=== PATIENT | female | born 1975 | race Hispanic/Latino ===

== ENCOUNTER 2017-09-10 05:40 | Observation (INO) | payer OTHER ==
[2017-09-10 05:55] VITALS: BMI 37.3
--- NOTE | 2017-09-10 06:09 | ED PDOC ---
HPI: Chest Pain Time Seen by Provider: 09/10/17 06:00 Chief Complaint (Nursing): Chest Pain Chief Complaint (Provider): Chest Pain History Per: Patient History/Exam Limitations: no limitations Onset/Duration Of Symptoms: Hrs (x5) Current Symptoms Are (Timing): Still Present Additional Complaint(s): 42 year old female with surgical history of gastric sleeve (2015), presents to the emergency department with pressure-like chest pain radiating to her back ongoing since 0100 earlier this morning. She reports associated shortness of breath and sweats. Patient denies any nausea or vomiting. PMD: none provided Past Medical History Reviewed: Historical Data, Nursing Documentation, Vital Signs Vital Signs: Last Vital Signs Temp 97.8 F 09/10/17 05:55 Pulse 68 09/10/17 06:30 Resp 18 09/10/17 06:30 BP 119/58 L 09/10/17 06:30 Pulse Ox 98 09/10/17 06:47 - Medical History PMH: No Chronic Diseases - Surgical History Surgical History: Denies: No Surg Hx Other surgeries: gastric sleeve 2015 - Family History Family History: States: No Known Family Hx Other Family History: heart attack - Social History Current smoker - smoking cessation education provided: No Alcohol: None Drugs: Denies - Home Medications Home Medications: Ambulatory Orders Medication Instructions Recorded No Known Home Med 09/10/17 - Allergies Allergies/Adverse Reactions: Allergies Allergy/AdvReac Type Severity Reaction Status Date / Time No Known Allergies Allergy Verified 09/10/17 05:55 Review of Systems ROS Statement: Except As Marked, All Systems Reviewed And Found Negative Constitutional: Positive for: Sweats Cardiovascular: Positive for: Chest Pain (pressure) Respiratory: Positive for: Shortness of Breath Gastrointestinal: Negative for: Nausea, Vomiting Musculoskeletal: Positive for: Back Pain Physical Exam - Reviewed Nursing Documentation Reviewed: Yes Vital Signs Reviewed: Yes - Physical Exam Appears: Positive for: Non-toxic, No Acute Distress (obese) Head Exam: Positive for: ATRAUMATIC, NORMAL INSPECTION, NORMOCEPHALIC Skin: Positive for: Normal Color Eye Exam: Positive for: Normal appearance ENT: Positive for: Normal ENT Inspection Neck: Positive for: Normal Cardiovascular/Chest: Positive for: Regular Rate, Rhythm Respiratory: Positive for: Normal Breath Sounds. Negative for: Wheezing, Respiratory Distress Gastrointestinal/Abdominal: Positive for: Normal Exam, Soft. Negative for: Tenderness Back: Positive for: Normal Inspection. Negative for: L CVA Tenderness, R CVA Tenderness Extremity: Positive for: Normal ROM (upper/lower). Negative for: Pedal Edema ( bilateral) Neurologic/Psych: Positive for: Alert, Oriented. Negative for: Motor/Sensory Deficits - Laboratory Results Result Diagrams: 09/10/17 06:14 09/10/17 06:14 - ECG O2 Sat by Pulse Oximetry: 98 (RA) Pulse Ox Interpretation: Normal Medical Decision Making Medical Decision Making: Initial Impression: 42 year old female with acute chest pain Initial Plan: * EKG * CMP * Drug screen, urine * Lipase * Troponin I * D Dimer * Urine dipstick * CBC * PTT * PT * CXR * Nitrostat SL 0.4mg SL * Pepcid 40mg IV * UA Time: 0700 --Patient endorsed to Dr. Delgado, pending lab results and re-evaluaiton. Scribe Attestation: Documented by Merari Steiner, acting as a scribe for Kobi Mobley MD. Provider Scribe Attestation: All medical record entries made by the Scribe were at my direction and personally dictated by me. I have reviewed the chart and agree that the record accurately reflects my personal performance of the history, physical exam, medical decision making, and the department course for this patient. I have also personally directed, reviewed, and agree with the discharge instructions and disposition. Disposition - Clinical Impression Clinical Impression: Chest pain - Patient ED Disposition Is Patient to be Admitted: Transfer of Care - Disposition Disposition Time: 07:00 Condition: FAIR Forms: [employer] (Greenlandic) Patient Signed Over To: Melissa Delgado
[2017-09-10 06:20] LABS: BASO # 0.1 K/uL (0.0-0.2); BASO % 0.8 % (0.0-2.0); EOS # 0.1 K/uL (0.0-0.7); EOS % 1.6 % (0.0-4.0); HEMOGLOBIN 9.4 g/dL (12.0-16.0); LYMPH # 2.2 K/uL (1.0-4.3); MEAN CORPUSCULAR HEMOGLOBIN 21.8 pg (27.0-31.0); MEAN CORPUSCULAR HGB CONC 30.7 g/dL (33.0-37.0); MEAN PLATELET VOLUME 8.5 fl (7.2-11.7); MONO # 0.5 K/uL (0.0-0.8); MONO % 6.5 % (0.0-10.0); NEUT # 4.5 K/uL (1.8-7.0); NEUT % 61.1 % (50.0-75.0); RBC 4.33 Mil/uL (3.80-5.20); RED CELL DISTRIBUTION WIDTH 17.8 % (11.5-14.5); WHITE BLOOD COUNT 7.4 K/uL (4.8-10.8)
[2017-09-10 06:27] LABS: ALB/GLOB RATIO 1.1 (1.0-2.1); ALBUMIN 3.9 g/dL (3.5-5.0); ALT/SGPT 50 U/L (9-52); AST/SGOT 127 U/L (14-36); BLOOD UREA NITROGEN 13 mg/dl (7-17); CALCIUM 9.1 mg/dL (8.4-10.2); GFR AFRICAN-AMERICAN > 60; GFR NON-AFRICAN AMERICAN > 60; LIPASE 58 U/L (23-300)
[2017-09-10 06:32] LABS: PARTIAL THROMBOPLASTIN TIME 29.1 Seconds (25.6-37.1); PROTHROMBIN TIME 11.5 Seconds (9.8-13.1)
--- NOTE | 2017-09-10 07:19 | ED PDOC ---
- Laboratory Results Result Diagrams: 09/10/17 06:14 09/10/17 06:14 - ECG O2 Sat by Pulse Oximetry: 98 (RA) Pulse Ox Interpretation: Normal Medical Decision Making Medical Decision Making: Time: 699 Patient signed out to me by Dr. Mobley pending labs and reevaluation. Time: 813 Upon reevaluation, patient states she came to the ER as she was woken from her sleep at 1am today due to mid-sternal chest pressure, which felt as if "something was sitting on me." Patient states she took Tums with no relief. Once in the ER, patient was given Nitro 0.4mg SL after which she reports pain relief. Labs reviewed and are significant for a low hemoglobin level of 9.4. Troponin, DDimer, PT, INR levels are all within normal limits. Time: [address] Sharpe, medicine banjo repair person, who recommends: Type and screen, folate levels, serum haptoglobin levels, Iron & TBIC levels , vitamin B12 level, erythrpioetin level, stool occult blood. Dr. Sharpe requesting cardiac consult to be placed with Dr. Allen Patient to be admitted under Dr. Sharpe for chest pain and anemia. Time: 829 Patient reports she has a history of anemia (not on any medication) and is currently on her menses. 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 Scribe Attestation: Documented by, Dot Walton acting as a scribe for Melissa Delgado MD. Provider Scribe Attestation: All medical record entries made by the Scribe were at my direction and personally dictated by me. I have reviewed the chart and agree that the record accurately reflects my personal performance of the history, physical exam, medical decision making, and the department course for this patient. I have also personally directed, reviewed, and agree with the discharge instructions and disposition. Disposition - Clinical Impression Clinical Impression: Chest pain - POA Present On Arrival: None - Disposition Disposition: Admitted as In-Patient Disposition Time: 08:26 Condition: FAIR
--- NOTE | 2017-09-10 08:14 | RAD ---
HISTORY: chest pain COMPARISON: Chest radiographs 12/13/2009. FINDINGS: LUNGS: No active pulmonary disease. PLEURA: No significant pleural effusion identified, no pneumothorax apparent. CARDIOVASCULAR: Normal. OSSEOUS STRUCTURES: No significant abnormalities. VISUALIZED UPPER ABDOMEN: Normal. OTHER FINDINGS: None. IMPRESSION: No interval acute cardiopulmonary disease appreciated.
--- NOTE | 2017-09-10 08:44 | CP.PCM.CON ---
History of Present Illness - History of Present Illness History of Present Illness: Consultation for evaluation of chest pain HPI: 42 year old CF with hx of gastric sleeve, obesity presenting with c/o chest pain Review of Systems - Review of Systems Systems not reviewed;Unavailable: Acuity of Condition - Constitutional Constitutional: As Per HPI - EENT Eyes: As Per HPI Ears: As Per HPI Nose/Mouth/Throat: As Per HPI - Breasts Breasts: As Per HPI - Cardiovascular Cardiovascular: As Per HPI - Respiratory Respiratory: As Per HPI - Gastrointestinal Gastrointestinal: As Per HPI - Genitourinary Genitourinary: As Per HPI - Reproductive: Female Reproductive:Female: As Per HPI - Menstruation Menstruation: As Per HPI - Musculoskeletal Musculoskeletal: As Per HPI - Integumentary Integumentary: As Per HPI - Neurological Neurological: As Per HPI - Psychiatric Psychiatric: As Per HPI - Endocrine Endocrine: As Per HPI - Hematologic/Lymphatic Hematologic: As Per HPI Past Patient History - Past Social History Alcohol: None Drugs: Denies - PSYCHIATRIC Hx Substance Use: No - SURGICAL HISTORY Hx Surgeries: Yes Hx Gastric Bypass Surgery: Yes (Gastric Sleeve 2015) - ANESTHESIA Hx Anesthesia: Yes Hx Anesthesia Reactions: No Meds Allergies/Adverse Reactions: Allergies Allergy/AdvReac Type Severity Reaction Status Date / Time No Known Allergies Allergy Verified 09/10/17 05:55 Physical Exam - Constitutional Appears: Well - Head Exam Head Exam: ATRAUMATIC, NORMAL INSPECTION, NORMOCEPHALIC - Eye Exam Eye Exam: EOMI, Normal appearance, PERRL Pupil Exam: NORMAL ACCOMODATION, PERRL - ENT Exam ENT Exam: Mucous Membranes Moist, Normal Exam - Neck Exam Neck exam: Positive for: Normal Inspection - Respiratory Exam Respiratory Exam: Clear to Auscultation Bilateral, NORMAL BREATHING PATTERN - Cardiovascular Exam Cardiovascular Exam: REGULAR RHYTHM, RRR, +S1, +S2 - GI/Abdominal Exam GI & Abdominal Exam: Normal Bowel Sounds, Soft. absent: Tenderness - Extremities Exam Extremities exam: Positive for: normal inspection - Back Exam Back exam: NORMAL INSPECTION - Neurological Exam Neurological exam: Alert, CN II-XII Intact, Normal Gait, Oriented x3, Reflexes Normal - Psychiatric Exam Psychiatric exam: Normal Affect, Normal Mood - Skin Skin Exam: Dry, Intact, Normal Color, Warm Results - Vital Signs Recent Vital Signs: Last Vital Signs Temp 97.8 F 09/10/17 05:55 Pulse 68 09/10/17 06:30 Resp 18 09/10/17 06:30 BP 119/58 L 09/10/17 06:30 Pulse Ox 98 09/10/17 08:31 - Labs Result Diagrams: 09/10/17 06:14 09/10/17 06:14 Labs: Laboratory Results - last 24 hr 09/10/17 09/10/17 09/10/17 06:14 06:14 06:14 WBC 7.4 RBC 4.33 Hgb 9.4 L Hct 30.7 L MCV 71.0 L MCH 21.8 L MCHC 30.7 L RDW 17.8 H Plt Count 272 MPV 8.5 Neut % (Auto) 61.1 Lymph % (Auto) 30.0 [place] % (Auto) 6.5 Eos % (Auto) 1.6 Baso % (Auto) 0.8 Neut # (Auto) 4.5 Lymph # (Auto) 2.2 [place] # (Auto) 0.5 Eos # (Auto) 0.1 Baso # (Auto) 0.1 PT 11.5 INR 1.0 APTT 29.1 D-Dimer, Quantitative Sodium 145 Potassium 4.0 Chloride 106 Carbon Dioxide 22 Anion Gap 21 H BUN 13 Creatinine 0.7 Est GFR ( Amer) > 60 Est GFR (Non-Af Amer) > 60 Random Glucose 96 Calcium 9.1 Total Bilirubin 1.0 AST 127 H ALT 50 Alkaline Phosphatase 99 Troponin I < 0.0120 Total Protein 7.4 Albumin 3.9 Globulin 3.5 Albumin/Globulin Ratio 1.1 Lipase 58 09/10/17 06:25 WBC RBC Hgb Hct MCV MCH MCHC RDW Plt Count MPV Neut % (Auto) Lymph % (Auto) [place] % (Auto) Eos % (Auto) Baso % (Auto) Neut # (Auto) Lymph # (Auto) [place] # (Auto) Eos # (Auto) Baso # (Auto) PT INR APTT D-Dimer, Quantitative 214 Sodium Potassium Chloride Carbon Dioxide Anion Gap BUN Creatinine Est GFR ( Amer) Est GFR (Non-Af Amer) Random Glucose Calcium Total Bilirubin AST ALT Alkaline Phosphatase Troponin I Total Protein Albumin Globulin Albumin/Globulin Ratio Lipase Assessment & Plan (1) Chest pain Assessment and Plan: HECTOR echo obs telemetry CT chest Status: Acute
[2017-09-10 10:03] LABS: IRON 14 ug/dL (37-170)
[2017-09-10 10:12] LABS: % IRON SATURATION 3 % (20-55); TOTAL IRON BINDING CAPACITY 417 ug/dL (250-450)
[2017-09-10 10:13] LABS: SQUAMOUS EPITHIAL 5 /hpf (0-5); URINE BACTERIA RARE (<OCC); URINE BILIRUBIN NEGATIVE (NEGATIVE); URINE BLOOD MODERATE (NEGATIVE); URINE CLARITY CLOUDY (Clear); URINE COLOR YELLOW (YELLOW); URINE GLUCOSE (UA) NEG (Normal); URINE LEUKOCYTE ESTERASE NEG Leu/uL (Negative); URINE PROTEIN NEGATIVE (NEGATIVE)
--- NOTE | 2017-09-10 10:13 | CARD ---
APPROVED REPORT EKG Measurement Heart [id number] <Conclusion> Undetermined rhythm Otherwise normal ECG
[2017-09-10 10:56] LABS: BARBITURATES, UR NEGATIVE (NEGATIVE); BENZODIAZEPINES, UR NEGATIVE (NEGATIVE); OPIATES, UR NEGATIVE (NEGATIVE); PHENCYCLIDINE, UR NEGATIVE (NEGATIVE)
[2017-09-10 17:10] LABS: FOLATE 5.9 ng/mL
[2017-09-11 00:21] VITALS: RESP 18
[2017-09-11 06:12] LABS: HDL CHOLESTEROL 35 MG/DL (30-70)
[2017-09-11 06:23] LABS: LDL CHOLESTEROL 87 mg/dL (0-129)
--- NOTE | 2017-09-11 08:40 | CP.PCM.HP ---
History of Present Illness - History of Present Illness History of Present Illness: 42 yo ,f, no significant PMHx presents c/o mid-sternal chest pain started yesterday at 1 pm while patient was sleeping, pressure like, radiated to back , no reproducible, no pleuritic, associated with diaphoresis, not alleviated with Tums. Patient denies cough, SOB, fever, n,v,pyrosis, abd pain, hx/o chest pain. Chest pain alleviated with nitro 0.4 mg in ED. Patient seen and examined bedside with Dr Sharpe. Patient reports chest pain subsided after patient was treated in ED. pending echo.f/u troponin Present on Admission - Present on Admission Any Indicators Present on Admission: No History of DVT/PE: No History of Uncontrolled Diabetes: No Urinary Catheter: No Decubitus Ulcer Present: No Review of Systems - Review of Systems All systems: reviewed and no additional remarkable complaints except - Cardiovascular Cardiovascular: Chest Pain - Respiratory Respiratory: As Per HPI Past Patient History - Past Medical History & Family History Past Medical History?: Yes - Past Social History Smoking Status: Never Smoked - CARDIAC Hx Cardiac Disorders: No - PULMONARY Hx Respiratory Disorders: No - NEUROLOGICAL Hx Neurological Disorder: No - HEENT Hx HEENT Problems: No - RENAL Hx Chronic Kidney Disease: No - ENDOCRINE/METABOLIC Hx Endocrine Disorders: No - INTEGUMENTARY Hx Dermatological Problems: No - MUSCULOSKELETAL/RHEUMATOLOGICAL Hx Musculoskeletal Disorders: No Hx Falls: No - GASTROINTESTINAL Hx Gastrointestinal Disorders: No - GENITOURINARY/GYNECOLOGICAL Hx Genitourinary Disorders: No - PSYCHIATRIC Hx Psychophysiologic Disorder: No Hx Substance Use: No - SURGICAL HISTORY Hx Surgeries: Yes Hx Gastric Bypass Surgery: Yes (Gastric Sleeve 2015) - ANESTHESIA Hx Anesthesia: Yes Hx Anesthesia Reactions: No Meds Home Medications: Home Medication List Medication Instructions Recorded Confirmed Type Ferrous Sulfate [Feosol] 325 mg PO TID #90 tab 09/11/17 Rx Allergies/Adverse Reactions: Allergies Allergy/AdvReac Type Severity Reaction Status Date / Time No Known Allergies Allergy Verified 09/10/17 05:55 Physical Exam - Constitutional Appears: Non-toxic, No Acute Distress - Head Exam Head Exam: ATRAUMATIC, NORMOCEPHALIC - Eye Exam Eye Exam: Normal appearance - ENT Exam ENT Exam: Mucous Membranes Moist - Neck Exam Neck exam: Positive for: Normal Inspection - Cardiovascular Exam Cardiovascular Exam: REGULAR RHYTHM, +S1, +S2 - GI/Abdominal Exam GI & Abdominal Exam: Normal Bowel Sounds, Soft. absent: Tenderness - Extremities Exam Extremities exam: Positive for: normal inspection. Negative for: pedal edema - Neurological Exam Neurological exam: Alert, Oriented x3 - Psychiatric Exam Psychiatric exam: Normal Affect, Normal Mood - Skin Skin Exam: Intact Results - Vital Signs Recent Vital Signs: Last Vital Signs Temp 97.6 F 09/11/17 08:00 Pulse 64 09/11/17 08:00 Resp 18 09/11/17 08:00 BP 111/71 09/11/17 08:00 Pulse Ox 97 09/11/17 08:00 - Labs Result Diagrams: 09/10/17 06:14 09/10/17 06:14 Labs: Laboratory Results - last 24 hr 09/10/17 09/10/17 09/10/17 08:10 09:06 09:06 Retic Count Haptoglobin 165.7 Iron 14 L TIBC 417 % Saturation 3 L Troponin I Triglycerides Cholesterol LDL Cholesterol Direct HDL Cholesterol Vitamin B12 Folate Urine Color Yellow Urine Clarity Cloudy Urine pH 7.0 Ur Specific [place] 1.019 Urine Protein Negative Urine Glucose (UA) Neg Urine Ketones Negative Urine Blood Moderate Urine Nitrate Negative Urine Bilirubin Negative Urine Urobilinogen 4.0 H Ur Leukocyte Esterase Neg Urine RBC (Auto) 4 H Urine Microscopic WBC 2 Ur Squamous Epith Cells 5 Urine Bacteria Rare Stool Occult Blood Negative Urine Opiates Screen Urine Methadone Screen Ur Barbiturates Screen Ur Phencyclidine Scrn Ur Amphetamines Screen U Benzodiazepines Scrn U Oth Cocaine Metabols U Cannabinoids Screen Blood Type Blood Type Confirm Antibody Screen BBK History Checked 09/10/17 09/10/17 09/10/17 09:06 10:02 10:09 Retic Count 1.1 Haptoglobin Iron TIBC % Saturation Troponin I Triglycerides Cholesterol LDL Cholesterol Direct HDL Cholesterol Vitamin B12 Folate Urine Color Urine Clarity Urine pH Ur Specific [place] Urine Protein Urine Glucose (UA) Urine Ketones Urine Blood Urine Nitrate Urine Bilirubin Urine Urobilinogen Ur Leukocyte Esterase Urine RBC (Auto) Urine Microscopic WBC Ur Squamous Epith Cells Urine Bacteria Stool Occult Blood Urine Opiates Screen Urine Methadone Screen Ur Barbiturates Screen Ur Phencyclidine Scrn Ur Amphetamines Screen U Benzodiazepines Scrn U Oth Cocaine Metabols U Cannabinoids Screen Blood Type O POSITIVE Blood Type Confirm O POSITIVE Antibody Screen Negative BBK History Checked No verified bt 0509/10/17 09/10/17 10:26 10:50 14:35 Retic Count Haptoglobin Iron TIBC % Saturation Troponin I < 0.0120 Triglycerides Cholesterol LDL Cholesterol Direct HDL Cholesterol Vitamin B12 676 Folate 5.9 Urine Color Urine Clarity Urine pH Ur Specific [place] Urine Protein Urine Glucose (UA) Urine Ketones Urine Blood Urine Nitrate Urine Bilirubin Urine Urobilinogen Ur Leukocyte Esterase Urine RBC (Auto) Urine Microscopic WBC Ur Squamous Epith Cells Urine Bacteria Stool Occult Blood Urine Opiates Screen Negative Urine Methadone Screen Negative Ur Barbiturates Screen Negative Ur Phencyclidine Scrn Negative Ur Amphetamines Screen Negative U Benzodiazepines Scrn Negative U Oth Cocaine Metabols Negative U Cannabinoids Screen Negative Blood Type Blood Type Confirm Antibody Screen BBK History Checked 09/10/17 09/11/17 23:00 05:30 Retic Count Haptoglobin Iron TIBC % Saturation Troponin I < 0.0120 Triglycerides 102 Cholesterol 158 LDL Cholesterol Direct 87 HDL Cholesterol 35 Vitamin B12 Folate Urine Color Urine Clarity Urine pH Ur Specific [place] Urine Protein Urine Glucose (UA) Urine Ketones Urine Blood Urine Nitrate Urine Bilirubin Urine Urobilinogen Ur Leukocyte Esterase Urine RBC (Auto) Urine Microscopic WBC Ur Squamous Epith Cells Urine Bacteria Stool Occult Blood Urine Opiates Screen Urine Methadone Screen Ur Barbiturates Screen Ur Phencyclidine Scrn Ur Amphetamines Screen U Benzodiazepines Scrn U Oth Cocaine Metabols U Cannabinoids Screen Blood Type Blood Type Confirm Antibody Screen BBK History Checked Assessment & Plan - Assessment and Plan (Free Text) Plan: Assessment/Plan 1) Chest pain To r/o ACS -troponin neg x 3. EKG NSR Canal Driver consult appreciated Echo: pending report 2) Anemia secondary to iron deficiency -history of gastric sleeve (2016) Hgb 9.4 , MCV low, iron low, vit B12, folate normal -ferrous sullfate 3) Cholelithiasis Abd Us : Showed cholelithiasis 4) Morbid obesity BMI: 37 5) DVT Prophylaxis -SCD
--- NOTE | 2017-09-11 09:09 | US ---
HISTORY: Gall stones COMPARISON: CT scan of the abdomen pelvis dated 12/11/2012. TECHNIQUE: Sonographic evaluation of the abdomen. FINDINGS: LIVER: Enlarged, measuring 17.8 cm. Normal echogenicity of the liver parenchyma. No mass. No intrahepatic bile duct dilatation. GALLBLADDER: Cholelithiasis without gallbladder wall thickening/ edema or pericholecystic fluid. Sonographic Chinchilla's sign was not elicited. COMMON BILE DUCT: Measures 4 mm. No stones. No dilatation. PANCREAS: Unremarkable as visualized. No mass. No ductal dilatation. RIGHT KIDNEY: Measures 10.7 x 5.6 x 4.1cm. Normal echogenicity. No calculus, mass, or hydronephrosis. LEFT KIDNEY: Measures 11.4 x 4.7 x 4.5cm. Normal echogenicity. No calculus, mass, or hydronephrosis. SPLEEN: Normal in size and contour. No mass. AORTA: No aneurysmal dilatation. IVC: Unremarkable. OTHER FINDINGS: None. IMPRESSION: Cholelithiasis without sonographic evidence for acute cholecystitis.
[2017-09-11 19:35] VITALS: BP 126/78; PULSE 69; TEMP 98.2; O2SAT 98
--- NOTE | 2017-09-11 20:23 | CP.PCM.PN ---
Subjective - Date & Time of Evaluation Date of Evaluation: 09/11/17 Time of Evaluation: 20:22 - Subjective Subjective: feeling fine acs ruled out Objective - Vital Signs/Intake and Output Vital Signs (last 24 hours): Temp Pulse Resp BP Pulse Ox 98.2 F 69 18 126/78 98 09/11/17 19:34 09/11/17 19:34 09/11/17 19:34 09/11/17 19:34 09/11/17 19:34 Intake and Output: 09/11/17 09/12/17 18:59 06:59 Intake Total 1200 Balance 1200 - Medications Medications: Current Medications Acetaminophen (Tylenol 325mg Tab) 650 mg PO Q6 PRN PRN Reason: Headache Aspirin (Aspirin Chewable) 81 mg PO DAILY [facility] Last Admin: 09/11/17 08:49 Dose: 81 mg Ferrous Sulfate (Feosol) 325 mg PO TID [facility] Last Admin: 09/11/17 18:07 Dose: 325 mg - Labs Labs: 09/10/17 06:14 09/10/17 06:14 PT 11.5 Seconds (9.8-13.1) 09/10/17 06:14 INR 1.0 (0.9-1.2) 09/10/17 06:14 APTT 29.1 Seconds (25.6-37.1) 09/10/17 06:14 - Constitutional Appears: Well - Head Exam Head Exam: ATRAUMATIC, NORMAL INSPECTION, NORMOCEPHALIC - Eye Exam Eye Exam: EOMI, Normal appearance, PERRL Pupil Exam: NORMAL ACCOMODATION, PERRL - ENT Exam ENT Exam: Mucous Membranes Moist, Normal Exam - Neck Exam Neck Exam: Full ROM, Normal Inspection. absent: Lymphadenopathy - Respiratory Exam Respiratory Exam: Clear to Ausculation Bilateral, NORMAL BREATHING PATTERN - Cardiovascular Exam Cardiovascular Exam: REGULAR RHYTHM, +S1, +S2. absent: Murmur - GI/Abdominal Exam GI & Abdominal Exam: Soft, Normal Bowel Sounds. absent: Tenderness - Extremities Exam Extremities Exam: Full ROM, Normal Capillary Refill, Normal Inspection. absent : Joint Swelling, Pedal Edema - Back Exam Back Exam: NORMAL INSPECTION - Neurological Exam Neurological Exam: Alert, Awake, CN II-XII Intact, Normal Gait, Oriented x3 - Psychiatric Exam Psychiatric exam: Normal Affect, Normal Mood - Skin Skin Exam: Dry, Intact, Normal Color, Warm Assessment and Plan (1) Chest pain Assessment & Plan: ACS ruled out echo normal stable to dc home outpt stress test Status: Acute
--- NOTE | 2017-09-12 12:28 | CARD ---
APPROVED REPORT EXAM: Two-dimensional and M-mode echocardiogram with Doppler and color Doppler. Other Information Quality : GoodRhythm : NSR INDICATION Chest Pain 2D DIMENSIONS IVSd1.06 (0.7-1.1cm)LVDd4.65 (3.9-5.9cm) LVOT Diameter1.83 (1.8-2.4cm)PWd1.00 (0.7-1.1cm) IVSs1.12 (0.8-1.2cm)LVDs2.99 (2.5-4.0cm) FS (%) 35.8 %PWs1.21 (0.8-1.2cm) M-Mode DIMENSIONS Left Atrium (MM)3.94 (2.5-4.0cm)IVSd1.11 (0.7-1.1cm) Aortic Root2.60 (2.2-3.7cm)LVDd4.81 (4.0-5.6cm) Aortic Cusp Exc.1.85 (1.5-2.0cm)PWd1.03 (0.7-1.1cm) IVSs1.29 cmFS (%) 42 % LVDs2.81 (2.0-3.8cm)PWs1.39 cm Mitral Valve MV E Dzykkocu711.8cm/sMV DECEL [id number] A Shwaqwhz15.2cm/s MV GTF99hwC/A ratio1.1MVA (PHT)3.94cm2 TDI Lateral E' Peak V14.10cm/sMedial E' Peak V13.44cm/sE/Lateral E'7.2 E/Medial E'7.6 Pulmonary Valve PV Peak Mimvlsoj824.9cm/s LEFT VENTRICLE The left ventricle is normal size. There is normal left ventricular wall thickness. The left ventricular function is normal. The left ventricular ejection fraction is within the normal range. The Ejection Fraction is 60-65%. There is normal LV segmental wall motion. The left ventricular diastolic function is normal. RIGHT VENTRICLE The right ventricle is normal size. The right ventricular systolic function is normal. ATRIA The left atrium size is normal. The right atrium size is normal. AORTIC VALVE The aortic valve is normal in structure. No aortic regurgitation is present. There is no aortic valvular stenosis. MITRAL VALVE The mitral valve is normal in structure. There is no mitral valve stenosis. There is no mitral valve regurgitation noted. TRICUSPID VALVE The tricuspid valve is normal in structure. There is no tricuspid valve regurgitation noted. PULMONIC VALVE The pulmonary valve is normal in structure. There is no pulmonic valvular regurgitation. GREAT VESSELS The aortic root is normal in size. The IVC is normal in size and collapses >50% with inspiration. PERICARDIAL EFFUSION The pericardium appears normal. <Conclusion> The left ventricle is normal size. The left ventricular function is normal. The left ventricular ejection fraction is within the normal range. The Ejection Fraction is 60-65%.
== END 2017-09-11 20:37 | disposition home or self-care (01) ==
LOC: H.ER 05:40 → H.ERHOLD 08:22 → H.TEL 14:04
PROVIDERS: ADMIT Internal Medicine; ATTEND Internal Medicine
DX: R07.89 Other chest pain (principal); D64.9 Anemia, unspecified; D50.9 Iron deficiency anemia, unspecified; E66.01 Morbid (severe) obesity due to excess calories; K80.20 Calculus of gallbladder without cholecystitis without obstruction; Z68.37 Body mass index [BMI] 37.0-37.9, adult; Z82.49 Family history of ischemic heart disease and other diseases of the circulatory system; Z98.84 Bariatric surgery status
CPT/HCPCS: 36415; 71045; 76700; 80053; 80061; 80324; 80345; 80346; 80349; 80353; 80358; 80361; 81003; 81025; 82607; 82668; 82746; 82747; 83010; 83540; 83550; 83690; 83992; 84484; 85025; 85044; 85378; 85610; 85730; 86850; 86900; 93005; 93306; 99283; G0328